=== PATIENT | female | born 1945 | race Caucasian/White ===

== ENCOUNTER 2018-06-23 14:19 | Emergency (ER) | payer OTHER ==
[~2018-06-23] VITALS: Ht 154.9 cm; Wt 45.8 kg
[~2018-06-23 14:19] MED LIST: ANEXSIA 7.5/321 EACH PO; Z.0.LEVAQUIN500 MG PO; Z.0.PREDNISONE10 MG PO; Z.0.TRAZODONE HCL100 PO; Z.0.XANAX0.5 MG PO
--- OUTSIDE RECORDS SUMMARY | 2018-06-23 14:21 | XMS REPORT | Clinical Summary ---
Author Author [facility] Address Unknown Phone Unavailable Care Team Providers Care Upholsterer Helper Name Role Phone Denice Simental MD PCP Allergies Comments Active Allergy Reactions Severity Noted Date PAPER TAPE OK Adhesive Rash Low 09/02/2016 Aspirin Rash Low Atorvastatin Diarrhea 01/17/2017 Itching Chocolate Flavor Swelling 09/02/2016 Codeine Nausea And Vomiting Nuts Food Extracts Rash Low 09/21/2017 Itching Iodine Swelling High 09/02/2016 Iodine And Iodide Itching 11/04/2016 Containing Products MILK INTOLERANCE Lactase-Rennet Diarrhea 09/02/2016 "drunk feeling,dizziness Pregabalin Other (See 09/02/2016 Comments) Sertraline Sulfa (Sulfonamide Rash Low 11/04/2016 Antibiotics) Medications End Date Status Medication Sig Dispensed Refills Start Date Active alendronate (FOSAMAX) 70 Take 70 mg by 0 MG tablet mouth every 7 days Take in the morning with a full glass of water, on an empty stomach, and do not take anything else by mouth or lie down for the next 30 min. . Active baclofen (LIORESAL) 10 MG Take 10 mg by 0 tablet mouth 3 (three) times daily as needed. Active LORazepam (ATIVAN) 1 MG Take 2 mg by 0 tablet mouth every 8 (eight) hours as needed for Anxiety . Active potassium chloride Take 10 mEq 0 (KLOR-CON) 10 MEQ CR by mouth 2 tablet (two) times daily. Active torsemide (DEMADEX) 20 MG Take 20 mg by 0 tablet mouth daily. Active magnesium oxide (MAG-OX) Take 400 mg 0 400 mg tablet by mouth daily. Active ergocalciferol Take 50,000 0 (ERGOCALCIFEROL) 50,000 Units by unit capsule mouth twice a week Takes sat and tues . Active ondansetron (ZOFRAN) 4 MG Take 4 mg by 0 tablet mouth 2 (two) times daily as needed for Nausea. Active venlafaxine (EFFEXOR) 75 Take 75 mg by 0 MG tablet mouth 2 (two) times daily. 09/21/2017 Discontinued furosemide (LASIX) 20 MG Take 20 mg by 0 tablet mouth 2 (two) times daily. 09/21/2017 Discontinued hydrOXYzine (ATARAX) 25 Take 25 mg by 0 MG tablet mouth every 6 (six) hours as needed for Itching. 09/21/2017 Discontinued loperamide (IMODIUM) 2 mg Take 2 mg by 0 capsule mouth as needed for Diarrhea. 09/21/2017 Discontinued methocarbamol (ROBAXIN) Take 750 mg 0 750 MG tablet by mouth 4 (four) times daily. 09/21/2017 Discontinued metoprolol (TOPROL-XL) 25 Take 25 mg by 0 MG 24 hr tablet mouth daily. 09/21/2017 Discontinued pantoprazole (PROTONIX) Take 40 mg by 0 40 MG tablet mouth daily. 11/04/2017 isosorbide mononitrate Take 1 tablet 90 tablet 3 (IMDUR) 30 MG 24 hr (30 mg total) 7 tablet by mouth daily. 11/04/2017 clopidogrel (PLAVIX) 75 Take 1 tablet 90 tablet 3 mg tablet (75 mg total) 7 by mouth daily. Active Problems Problem Noted Date CAD (coronary artery disease) 09/21/2017 Abnormal stress test 09/21/2017 Chest pain 11/04/2016 Encounters Care Team Description Date Type Specialty Dusty Rice MD L CATH & CORONARY ANGIOS 09/21/2017 Surgery Dusty Rice MD 09/21/2017 Hospital Encounter after 06/22/2017 Social History Date Tobacco Use Types Packs/Day Years Used Former Smoker Smokeless Tobacco: Never Used Comments: quit 10 years ago Alcohol Use Drinks/Week oz/Week Comments No Sex Assigned at Date Recorded Not on file Industry Job Start Date Occupation Not on file Not on file Not on file Travel End Travel History Travel Start No recent travel history available. Last Filed Vital Signs Time Taken Vital Sign Reading 09/21/2017 8:40 PM CDT Blood Pressure 126/58 09/21/2017 8:40 PM CDT Pulse 86 09/21/2017 11:37 AM CDT Temperature 36.7 C (98 F) 09/21/2017 8:40 PM CDT Respiratory Rate 18 09/21/2017 6:15 PM CDT Oxygen Saturation 96% - Inhaled Oxygen - Concentration 09/21/2017 11:37 AM CDT Weight 83.8 kg (184 lb 12.8 oz) 09/21/2017 11:37 AM CDT Height 154.9 cm (5' 1") 09/21/2017 11:37 AM CDT Body Mass Index 34.92 Plan of Treatment Not on file Implants Device Identifier Shelf Expiration Date Model / Serial / Lot Implanted Type Area Manufactur er [id number] / / [id number] Device Clsr Angio-Seal Vip 6fr Cardiovasc N/A: Groin ST DONY [id number] - [id number] ular MED:CARDIA Implanted: Qty: 1 on 09/21/2017 by Dusty Vega MD Procedures Comments Procedure Name Priority Date/Time Associated Diagnosis VASCULAR DIAGRAM -SCAN 10/20/2017 1:26 PM CDT CARDIAC CATH REPORT - 09/27/2017 SCAN 3:13 PM CDT REPORT OF PROCEDURE - 09/22/2017 ENDOSCOPY SCAN 3:10 PM CDT L CATH & CORONARY ANGIOS 09/21/2017 CAD I25.10 6:07 PM CDT Case Notes POP6 POSS PCI POTASSIUM-STAT LAB Routine 09/21/2017 1:46 PM CDT POTASSIUM Routine 09/21/2017 12:50 PM CDT after 06/22/2017 Results * VASCULAR DIAGRAM -SCAN (10/20/2017 1:26 PM CDT) Narrative Performed At * CARDIAC CATH REPORT - SCAN (09/27/2017 3:13 PM CDT) Narrative Performed At * EKG-SCANNED (09/22/2017 3:10 PM CDT) Narrative Performed At * Potassium-Stat Lab (09/21/2017 1:46 PM CDT) Potassium 4.5 3.6 - 5.5 meq/L [facility] Specimen Blood, Arterial Performing Organization Address City/[facility]/Zipcode Phone Number [facility] [address] [place] [address] [facility] * Potassium (09/21/2017 12:50 PM CDT) Potassium 4.1 3.5 - 5.1 meq/L [facility] Specimen Blood Performing Organization Address City/[facility] Number [facility] [address] [place] [address] [facility] after 06/22/2017 Insurance Payer Benefit Subscriber ID Type Phone Address Plan / Group [facility] xxxxxxxxx CARE CHARTER Advance Directives For more information, please contact: [address] [address] Date Inactivated Comments Code Status Date Activated 09/21/2017 10:54 PM Full Code 09/21/2017 12:35 PM This code status was determined by: Patient 11/05/2016 12:37 AM Full Code 11/04/2016 4:52 PM This code status was determined by: Patient
--- OUTSIDE RECORDS SUMMARY | 2018-06-23 14:22 | XMS REPORT | Continuity of Care Document ---
Author Author [facility] Interface Address Unknown Phone Unavailable Problems Problem Status Onset Date Classification Date Reported Comments Source SWELLING AND WEAKNESS [place] LEGS, [place] Active [facility] [place] Medications Medication Details Route Status Patient Instructions Ordering Provider Order Date Source Allergies, Adverse Reactions, Alerts Substance Category Reaction Severity Reaction type Status Date Reported Comments Source Immunizations Immunization Date Given Site Status Last Updated Comments Source Results Order Name Results Value Reference Range Date Interpretation Comments Source Vital Signs Vital Sign Value Date Comments Source Encounters Location Location Details Encounter Type Encounter Number Reason For Visit Attending Provider ADM Date DC Date Status Source [facility] [place] OP Therapy Patients [id number] Randall Angel 04/20/2016 05/20/2016 [facility] [place] Procedures Procedure Code Date Perfomer Comments Source
--- OUTSIDE RECORDS SUMMARY | 2018-06-23 14:22 | XMS REPORT ---
Author Author [facility] Address Unknown Phone Unavailable Care Team Providers Care Director Of Hemophilia Name Role Phone RHINA SYLVESTER Unavailable Unavailable Problems This patient has no known problems. Allergies, Adverse Reactions, Alerts This patient has no known allergies or adverse reactions. Medications This patient has no known medications. Results Test Description Test Time Test Comments Text Results Atomic Results Result Comments POTASSIUM-STAT LAB 2017-09-21 13:57:00 POTASSIUM (REAGANAKER) (test hgnk=864) 4.5 meq/L 3.6-5.5 [id number] 13:15:00* Test Item Value Reference Range Comments POTASSIUM (BEAKER) (test ojdb=433) 4.1 meq/L 3.5-5.1
--- OUTSIDE RECORDS SUMMARY | 2018-06-23 14:22 | XMS REPORT | Summary of Care ---
Author Author [facility] Address Unknown Phone Unavailable Encounter [facility]imanuel([facility]) [id number] Date(s): 04/20/16 - 05/19/16 [facility] Discharge Disposition: Home or Self Care Attending Physician: Randall Angel MD Vital Signs No data available for this section Problem List No data available for this section Allergies, Adverse Reactions, Alerts No data available for this section Medications No data available for this section Results No data available for this section Immunizations No data available for this section Procedures No data available for this section Social History No data available for this section Assessment and Plan No data available for this section
[2018-06-23] MEDS ORDERED: CYCLOBENZAPRINE HCL 10 MG TAB PO ONE (14:45)
[2018-06-23] MEDS ORDERED: MORPHINE SULFATE 5 MG/ML VIAL IV ONE (15:30)
[2018-06-23] MEDS ORDERED: PROPOFOL IV EMULSION 10 MG/ML 20 ML VIAL IV ONE ×2 (15:30→19:15)
--- NOTE | 2018-06-23 15:47 | Diagnostic Imaging Report ---
EXAMINATION: Right shoulder series. CLINICAL HISTORY: Status post fall. COMPARISON: None. . Discussion: Decreased bone mineralization. There is infra coracoid position of the humeral head, likely reflecting anterior glenohumeral dislocation. Acute displaced oblique fracture of the superolateral aspect of the humeral head,, with lateral fracture fragment separation of approximately 2 cm. no osteolytic or osteoblastic lesions. There is no evidence of a.c. separation. The glenoid is unremarkable. The soft tissues are normal. IMPRESSION: 1. Anterior glenohumeral dislocation. 2. Acute displaced oblique fracture of the superolateral aspect of the humeral head, with lateral fracture fragment separation of approximately 2 cm. Signed by: Dr. Gregory Hess M.D. on 06/23/2018 3:43 PM
[2018-06-23 16:20] VITALS: BP 174/91
[2018-06-23] MEDS ORDERED: ONDANSETRON HCL INJ 2 MG/ML VIAL IV STA (16:20)
--- NOTE | 2018-06-23 17:40 | Diagnostic Imaging Report ---
Shoulder left limited CPT code: 14799 Indication: Post reduction. Technique: Portable AP image of the right shoulder obtained. Comparison: Shoulder x-rays performed at 1515 hours. Findings: Anterior right humeral dislocation has been reduced. Fracture of the superolateral aspect of the humeral head is poorly visualized due to superimposed structures. No glenoid fracture on provided images. IMPRESSION: Reduction of anterior glenohumeral dislocation. Signed by: Dr. Lul Frost MD on 06/23/2018 5:37 PM
[2018-06-23] MEDS ORDERED: SODIUM CHLORIDE 0.9% 1000ML 1,000 ML IV SCH (19:15)
[2018-06-23] MEDS ORDERED: PROPOFOL IV EMULSION 10 MG/ML 50 ML VIAL IV ONE (19:15)
== END 2018-06-23 17:00 | disposition home or self-care (01) ==
LOC: FSED 14:19
DX: S43.014A Anterior dislocation of right humerus, initial encounter (principal); S42.391A Other fracture of shaft of right humerus, initial encounter for closed fracture; W01.198A Fall on same level from slipping, tripping and stumbling with subsequent striking against other object, initial encounter; Y93.01 Activity, walking, marching and hiking; Y92.008 Other place in unspecified non-institutional (private) residence as the place of occurrence of the external cause
CPT/HCPCS: 23650; 73020; 73030; 99284; J2270; J2405; J2704